=== PATIENT | female | born 1995 | race Caucasian/White ===

== ENCOUNTER 2018-04-16 10:52 | Emergency (ER) | payer BC ==
[~2018-04-16] VITALS: Ht 167.6 cm; Wt 104.5 kg
[2018-04-16 11:14] VITALS: Ht 167.6 cm; Wt 104.5 kg
[2018-04-16] MEDS ORDERED: LISINOPRIL5 MG PO (12:12)
[2018-04-16] MEDS ORDERED: TYLENOL W/CODEI1 TAB PO (13:01)
[2018-04-16 16:01] VITALS: BP 133/943
== END 2018-04-16 16:02 | disposition home or self-care (01) ==
LOC: D.ER 10:52
DX: I10 Essential (primary) hypertension (principal); K08.89 Other specified disorders of teeth and supporting structures; F17.200 Nicotine dependence, unspecified, uncomplicated